=== PATIENT | female | born 1965 | race Two or more races ===

== ENCOUNTER 2022-07-22 15:54 | Emergency (ER) | payer OTHER ==
[~2022-07-22] VITALS: Ht 157.5 cm; Wt 55.8 kg
== END 2022-07-22 21:52 | disposition home or self-care (01) ==
LOC: ER 15:54
DX: R56.9 Unspecified convulsions (principal); I10 Essential (primary) hypertension; M25.511 Pain in right shoulder; F10.21 Alcohol dependence, in remission